=== PATIENT | male | born 1975 | race Caucasian/White ===

== ENCOUNTER 2020-04-18 01:14 | Outpatient (CLI) | payer OTHER, SELFPAY ==
[2020-04-18 08:29] LABS: Kit/Specimen SENT
== END 2020-04-18 01:34 ==
PROVIDERS: PCP Naturopath; Visit Provider Naturopath
DX: E78.5 Hyperlipidemia, unspecified (principal); E78.41 Elevated Lipoprotein(a); E55.9 Vitamin D deficiency, unspecified; Z79.899 Other long term (current) drug therapy
CPT/HCPCS: 36415